=== PATIENT | male | born 1940 | race Caucasian/White ===

== ENCOUNTER 2017-06-15 11:01 | Outpatient (CLI) | payer MEDICARE ==
--- NOTE | 2017-06-15 11:48 | RAD ---
KUB: History: Renal stone. FINDINGS: Comparison is made with exam of 10-21-11. No suspicious calcifications are seen. The bowel gas pattern is unremarkable. There are degenerative changes in the spine. If there is high clinical suspicion for urinary tract calculi, CT scan should be obtained. POS: [facility]
[2017-06-15 15:59] LABS: Bilirubin Negative (Negative); Blood, Urine Trace (Negative); Glucose, Urine (Dipstick) Negative (Negative); Ketone, Urine Negative (Negative); Nitrite Negative (Negative); Protein, Urine (Dipstick) Trace mg/dL (Neg-Trace)
[2017-06-15 16:04] LABS: Bacteria/HPF None Seen HPF (None Seen); Hyaline Casts/LPF 0-3 HYALINE CAST LPF (0-3 Hyaline); Squamous Epithelial None Seen HPF (0-3); WBC/HPF 0-3 HPF (0-3)
== END 2017-06-15 11:02 | disposition home or self-care (01) ==
LOC: RAD 11:01
PROVIDERS: ATTEND Urology
DX: Z85.46 Personal history of malignant neoplasm of prostate (principal); Z87.442 Personal history of urinary calculi
CPT/HCPCS: 74000; 81001

== ENCOUNTER 2017-07-05 08:21 | Outpatient (CLI) | payer MEDICARE ==
[2017-07-05] MEDS ORDERED: Iopamidol 370 76% 100 ML VIAL ONE (16:01)
== END 2017-07-05 08:22 | disposition home or self-care (01) ==
LOC: BICCT 08:21
PROVIDERS: ATTEND Internal Medicine Gastroenterology
DX: R10.9 Unspecified abdominal pain (principal); J90 Pleural effusion, not elsewhere classified
CPT/HCPCS: 74177

== ENCOUNTER 2017-07-07 14:43 | Outpatient (CLI) | payer MEDICARE ==
--- NOTE | 2017-07-07 18:38 | MRI ---
MRI OF THE ABDOMEN WITHOUT AND WITH CONTRAST 07/07/16 COMPARISON: CT abdomen/pelvis 07/05/17 from [facility]. HISTORY: Abnormal imaging. Liver protocol per Dr. Sandhu. TECHNIQUE: Multiplanar and multisequence MR images were obtained of the abdomen without and with IV contrast. FINDINGS: This exam is severely limited secondary to motion artifact. There is abnormal morphology of the right lobe of the liver where the abnormality seen on CT is present. This is in a region measuring approxi mately 8.8 cm in length. This demonstrates high T2 signal but is heterogeneous in appearance. There i s retraction of the edge of the liver in the region where this altered morphology is present. On the in and out of phase images, the area involving the right lobe of the liver appears to be even larger and extends past the area of capsular retraction and the lesion measures approximately 12.8 cm in siz e. After the administration of contrast, this area enhances more avidly than the background liver par enchyma but there are areas of nonenhancement in the center of the mass. This does not demonstrate a pattern of puddling and fill-in as would be seen with a benign process and this process is suspicious for malignancy. The mass is immediately adjacent to the gallbladder but does not appear to involve t he gallbladder. The portal venous branches to the left lobe of the liver can be seen, but the portal venous branches to the right lobe of the liver are not visualized. There is a small amount of ascites in the right upper quadrant of the abdomen. There is a small to mo derate right pleural effusion with adjacent atelectasis. The spleen is enlarged measuring 16.9 cm in length. There are enlarged retroperitoneal lymph nodes. The largest is seen superiorly measuring 2.4 cm in greatest dimension. There are well circumscribed foci of high T2 signal in the kidneys measuring up to 2.8 cm in size wh ich represents cysts. The adrenal glands and pancreas are unremarkable. No marrow signal abnormality is present. IMPRESSION: 1. There is a large mass in the right lobe of the liver which is suspicious for a malignancy. Th is could represent a hepatocellular carcinoma. This disease appears to be most likely be a hepatic pr imary rather than metastatic disease. 2. Splenomegaly is likely secondary to portal hypertension. 3. There is retroperitoneal adenopathy. 4. Right pleural effusion. 5. Renal cysts. POS: [facility]
== END 2017-07-07 14:44 | disposition home or self-care (01) ==
LOC: MRI 14:43
PROVIDERS: ATTEND Internal Medicine Gastroenterology
DX: R93.3 Abnormal findings on diagnostic imaging of other parts of digestive tract (principal); R16.1 Splenomegaly, not elsewhere classified; R59.0 Localized enlarged lymph nodes; J90 Pleural effusion, not elsewhere classified; R91.8 Other nonspecific abnormal finding of lung field; N28.1 Cyst of kidney, acquired; K74.60 Unspecified cirrhosis of liver; R18.8 Other ascites
CPT/HCPCS: 36415; 74183; 82105